=== PATIENT | female | born 1980 | race Caucasian/White ===

== ENCOUNTER 2018-03-30 10:08 | Emergency (ER) | payer SELFPAY ==
[2018-03-30 10:13] VITALS: BP 146/88
--- NOTE | 2018-03-30 10:20 | ER Document Report ---
HPI - HPI Patient complains to provider of: Left upper arm pain Onset: Other - Saturday Onset/Duration: Gradual Pain Level: 4 Context: 37-year-old female complaining of left upper arm pain and tender muscle on Saturday. She does not remember anything specifically that would make it hurt. No fever or chills. No chest pain or shortness of breath. Hurts when she abducts it. Associated Symptoms: None Exacerbated by: Movement Relieved by: Denies - ROS ROS below otherwise negative: Yes Systems Reviewed and Negative: Yes All other systems reviewed and negative Past Medical History - General Information source: Patient - Social History Smoking Status: Unknown if Ever Smoked Frequency of alcohol use: None Drug Abuse: None Lives with: Family Family History: Reviewed & Not Pertinent - Medical History Medical History: Negative Surgical Hx: Negative Vertical Provider Document - CONSTITUTIONAL Agree With Documented VS: Yes Exam Limitations: No Limitations General Appearance: No Apparent Distress - INFECTION CONTROL TRAVEL OUTSIDE OF THE [place] IN LAST 30 DAYS: No - HEENT HEENT: Normal ENT Exam, Normocephalic - NECK Neck: Supple - Nontender neck and C-spine - RESPIRATORY Respiratory: Breath Sounds Normal, No Respiratory Distress - CARDIOVASCULAR Cardiovascular: Regular Rate, Regular Rhythm - MUSCULOSKELETAL/EXTREMETIES Musculoskeletal/Extremeties: MAEW, FROM, Tender - Left deltoid muscle, No Edema. negative: Eccymosis - NEURO Level of Consciousness: Awake Motor/Sensory: No Motor Deficit, No Sensory Deficit - DERM Integumentary: Warm, Dry, No Rash Course - Vital Signs Vital signs: Temp Pulse Resp BP Pulse Ox 98.4 F 101 H 20 146/88 H 98 03/30/18 10:12 03/30/18 10:12 03/30/18 10:12 03/30/18 10:12 03/30/18 10:12 Discharge - Discharge Clinical Impression: Left shoulder pain, Left deltoid muscle strain Condition: Good Disposition: HOME, SELF-CARE Instructions: Acetaminophen, Family Physicians / Practices, Ibuprofen (General ) ([facility]), Muscle Strain ([facility]), Temporary Sling ([facility]) Additional Instructions: Warm compress Motrin Tylenol Referral to family practice for follow-up Sling for a few days to rest the muscle Prescriptions: Ibuprofen [Motrin 800 mg Tablet] 800 mg PO Q8HP PRN #30 tablet PRN Reason: Referrals: MARINO MACIAS NP [COMMUNITY BASED STAFF] - Follow up as needed
--- NOTE | 2018-03-30 10:40 | RADIOLOGY REPORT (SQ) ---
EXAM DESCRIPTION: SHOULDER LEFT 2 OR MORE VIEWS COMPLETED DATE/TIME: 03/30/2018 10:30 am REASON FOR STUDY: shoulder pain COMPARISON: None. NUMBER OF VIEWS: Three views. TECHNIQUE: Internal rotation, external rotation, and Y view images acquired of the left shoulder. LIMITATIONS: None. FINDINGS: MINERALIZATION: Normal. BONES: Subchondral cystic change distal left clavicle. Otherwise, no acute fracture or bony abnormal ity. JOINTS: No dislocation. VISUALIZED LUNGS AND RIBS: No pneumothorax. No rib fracture. SOFT TISSUES: No radiopaque foreign body. OTHER: No other significant finding. IMPRESSION: NEGATIVE STUDY OF THE LEFT SHOULDER. NO RADIOGRAPHIC EVIDENCE OF ACUTE INJURY. TECHNICAL DOCUMENTATION: JOB ID: [id number] [id number] 2010 [employer]- All Rights Reserved Reading location - IP/workstation name: [email or web address]
== END 2018-03-30 11:25 | disposition home or self-care (01) ==
LOC: ER 10:08
DX: S46.812A Strain of other muscles, fascia and tendons at shoulder and upper arm level, left arm, initial encounter (principal); X58.XXXA Exposure to other specified factors, initial encounter
CPT/HCPCS: 99283

== ENCOUNTER 2019-02-28 01:56 | Emergency (ER) | payer MEDICAID ==
--- NOTE | 2019-02-28 04:35 | RADIOLOGY REPORT (SQ) ---
EXAM DESCRIPTION: XR FOOT 3 OR MORE VIEWS COMPLETED DATE/TME: 02/28/2019 02:39 CLINICAL HISTORY: 38 years Female, pain/swelling/difficulty walking COMPARISON: None. Findings: Small calcaneal enthesophytes. Bones, joints, and soft tissues of the LEFT XR FOOT 3 OR MORE VIEWS appear otherwise unremarkable. IMPRESSION: No acute findings.
[2019-02-28] MEDS ORDERED: KETOROLAC TROMETHAMINE 60 MG/2 ML SDV IM ONE (05:12)
--- NOTE | 2019-02-28 05:21 | ER Document Report ---
HPI - HPI Time Seen by Provider: 02/28/19 04:48 Pain Level: 4 Context: Patient is a 38-year-old female that comes to the emergency department for chief complaint of 1 week of sharp pain in her left foot. Pain is in the bottom of her foot, worse with standing and walking, even worse when first getting out of bed and placing her foot on the ground in the morning. She denies injury, swelling, redness, fever/chills, or history of the same. She took Tylenol at home without significant improvement. She does work at a [employer] and stands constantly for about 9 hours per shift. - REPRODUCTIVE Reproductive: DENIES: : Past Medical History - General Information source: Patient - Social History Smoking Status: Never Smoker Drug Abuse: None Lives with: Family Family History: Reviewed & Not Pertinent Renal/ Medical History: Denies: Hx Peritoneal Dialysis - Immunizations Immunizations up to date: Yes Hx Diphtheria, Pertussis, Tetanus Vaccination: Yes Vertical Provider Document - CONSTITUTIONAL General Appearance: WD/WN, No Apparent Distress, Obese - INFECTION CONTROL TRAVEL OUTSIDE OF THE [place] IN LAST 30 DAYS: No - HEENT HEENT: Atraumatic, Normocephalic - NECK Neck: Normal Inspection - RESPIRATORY Respiratory: Breath Sounds Normal, No Respiratory Distress - CARDIOVASCULAR Cardiovascular: Regular Rate, Regular Rhythm - GI/ABDOMEN Gastrointestinal: Abdomen Soft, Abdomen Non-Tender - BACK Back: Normal Inspection - MUSCULOSKELETAL/EXTREMETIES Musculoskeletal/Extremeties: Tender - Tender at the insertion of the left plantar tendon at the calcaneus. General tenderness over the bottom of the abdomen in the distribution of the plantar tendon. No swelling, erythema, abnormal heat, induration, fluctuance. Normal ankle, normal capillary refill and sensation, normal dorsalis pedis. Normal extremity exam is otherwise. - NEURO Level of Consciousness: Awake, Alert, Appropriate - DERM Integumentary: Warm, Dry, No Rash Course - Re-evaluation Re-evalutation: X-ray of the foot unremarkable. Examination is consistent with plantar fasciitis. Discussed options, patient was provided with crutches on request. Discussed treatment of this, provided her with a packet of information from up-to-date with details as well, provided work release. Discussed orthopedic follow-up. Discussed return precautions. Patient states understanding and agreement. - Vital Signs Vital signs: Temp Pulse Resp BP Pulse Ox 99.4 F 93 16 173/101 H 96 02/28/19 04:11 02/28/19 04:11 02/28/19 04:11 02/28/19 04:11 02/28/19 04:11 Discharge - Discharge Clinical Impression: Left foot pain Condition: Stable Disposition: HOME, SELF-CARE Additional Instructions: Your evaluation shows plantar fasciitis. Take the anti-inflammatory as prescribed, perform foot stretches (see handout), wear supportive shoes, use crutches if needed. Symptoms should gradually resolve with time. If symptoms persist follow-up with orthopedics referral. Return for any concerning symptoms including severe worsening pain, swelling, redness of the foot, fever, or any other concerning symptoms. Prescriptions: Naproxen 500 mg PO BID PRN #20 tablet PRN Reason: Forms: Return to Work, Elevated Blood Pressure Referrals: REGAN MOYA MD [ACTIVE STAFF] - Follow up in 1 week
[2019-02-28 05:25] VITALS: BP 141/93
== END 2019-02-28 05:40 | disposition home or self-care (01) ==
LOC: ER 01:56
DX: M79.672 Pain in left foot (principal)
CPT/HCPCS: 99283; 96372; 73630; J1885